=== PATIENT | female | born 1980 | race Caucasian/White ===

== ENCOUNTER 2024-03-16 11:50 | Emergency (ER) | payer OTHER, SELFPAY ==
[2024-03-16 12:02] VITALS: BP 146/98
--- NOTE | 2024-03-16 12:08 | ED.GENMED ---
ED Provider Triage
<Laura Hoang PA-C - Last Filed: 03/16/24 12:14>
-
Patient seen by provider in Triage?: Seen in Triage
Attestation: A medical screening examination has been initiated by a qualified medical provider. Based on the assessment performed at this time, it has been determined that an emergent medical condition may exist and the patient has been informed
that further medical evaluation and possible additional diagnostic testing may be needed.
HPI: 44yoF here with n/v since Friday. Also having lower abd pain but main symptom is vomiting. Wegovy dose recently increased.
GENERAL: Alert , in no apparent distress
EYE: No visual abnormalities.
NECK: Trachea midline
ENT: No visible abnormalities.
LUNGS: No acute respiratory distress
NEUROLOGICAL: Alert and oriented
SKIN: Skin intact. No visible changes.
MUSCULOSKELETAL: Moving extremities normally
PSYCH: Normal and appropriate interaction.
This is a medical evaluation conducted in person to initiate diagnostic evaluation and provide initial therapeutics. Please see further documentation by the treating clinician.
Abdominal labs and HCG ordered. PO Zofran dose ordered for nausea.
History of Present Illness
<Laura Hoang PA-C - Last Filed: 03/16/24 12:14>
General
Chief Complaint: Abdominal Symptoms
Time Seen by Provider: 03/16/24 14:53
<Shaka Gracia Jr., PA-C - Last Filed: 03/16/24 18:53>
General
Source: patient
Exam Limitations: none
Nursing documentation reviewed up to this point in time: agreed with
History of Present Illness
History of Present Illness:
44-year-old female past with history of hypothyroidism and depression presenting to the emergency department today with concerns of nausea and vomiting over the past 4 days denies any diarrhea no fevers no abdominal pain did start Wegovy 6 weeks ago
last dose was last Friday takes this once weekly.
Past History
<Laura Hoang PA-C - Last Filed: 03/16/24 12:14>
Past History
ED Past Medical History: Hypothyroidism
ED Past Surgical History: None
Social History
Tobacco: Non-smoker
Alcohol: None
Personal:
Living: with family
Family History
Family History: Negative Diabetes
Review of Systems
<Shaka Gracia Jr., PA-C - Last Filed: 03/16/24 18:53>
Review of Systems
Allergies reviewed?: Yes
All Other Systems: ROS reviewed and negative except as documented in HPI and ROS
Phy Exam
<Shaka Gracia Jr., PA-C - Last Filed: 03/16/24 18:53>
Physical Exam
Physical Exam:
GENERAL: Alert , in no apparent distress
EYE: pupils equal and reactive
NECK: Supple, no significant adenopathy.
ENT: o/p clr, mmm.
CARDIAC: Regular rate and rhythm .
LUNGS: Clear breath sounds bilaterally, no acute respiratory distress, no wheezes/rales/rhonchi
ABDOMEN: Soft, without focal tenderness, no r/g, no cvat
NEUROLOGICAL: Alert and oriented, no focal neuro deficits
SKIN: Warm and dry, skin intact.
MUSCULOSKELETAL: No edema, well perfused.
PSYCH: Normal and appropriate interaction.
Course
<Laura Hoang PA-C - Last Filed: 03/16/24 12:14>
Orders/Labs/Results
Orders:
Orders
03/16/24 12:07
Test Result ONCE
03/16/24 12:11
Ondansetron Orally Disint [Zofran Odt (Orally Disintegrating)] 4 mg PO NOW STA
03/16/24 12:12
Ondansetron HCl [Zofran] 4 mg PO NOW STA
03/16/24 12:16
Complete Blood Count/With Diff Urgent
Comprehensive Metabolic Panel Urgent
HCG, Serum Qualitative Screen Urgent
Lipase Urgent
03/16/24 15:32
0.9% Sodium Chloride 1000 ml [Nss] 1,000 ml IV BOLUS
Famotidine [Pepcid] 20 mg IV NOW STA
Ondansetron Injectable [Zofran] 4 mg IV NOW STA
03/16/24 15:33
US Abdomen Complete/Upper Urgent
Comment:
Reason For Exam: transaminitis vomiting vague abd pain
03/16/24 17:11
Urinalysis Reflex To Culture Urgent
Date Specimen was Collected: 03/16/24
Time Specimen was Collected: 12:07
Abnormal Lab Results
03/16/24
12:16
MPV 11.3 H fL
(7.4-10.4)
Absolute Monos (auto) 0.7 H 10^3/uL
(0.1-0.6)
Monocytes % 12.0 H %
(1.7-9.3)
Carbon Dioxide 20 L mmol/L
(22-30)
AST 143 H U/L
(14-36)
ALT 191 H U/L
(0-35)
Albumin 5.1 H g/dl
(3.5-5.0)
03/16/24 12:16
03/16/24 12:16
Vital Signs
Initial and Last Documented VS:
Initial Vital Signs
Temp Pulse Resp BP Pulse Ox
97.8 F 110 16 146/98 98
03/16/24 12:02 03/16/24 12:02 03/16/24 12:02 03/16/24 12:02 03/16/24 12:02
Last Documented Vital Signs
Temp Pulse Resp BP Pulse Ox
97.8 F 97 16 130/85 100
03/16/24 12:02 03/16/24 15:53 03/16/24 16:00 03/16/24 15:53 03/16/24 15:53
<Shaka Gracia Jr., HEATH-Rob - Last Filed: 03/16/24 18:53>
Orders/Labs/Results
Orders:
Orders
03/16/24 12:07
Test Result ONCE
03/16/24 12:11
Ondansetron Orally Disint [Zofran Odt (Orally Disintegrating)] 4 mg PO NOW STA
03/16/24 12:12
Ondansetron HCl [Zofran] 4 mg PO NOW STA
03/16/24 12:16
Complete Blood Count/With Diff Urgent
Comprehensive Metabolic Panel Urgent
HCG, Serum Qualitative Screen Urgent
Lipase Urgent
03/16/24 15:32
0.9% Sodium Chloride 1000 ml [Nss] 1,000 ml IV BOLUS
Famotidine [Pepcid] 20 mg IV NOW STA
Ondansetron Injectable [Zofran] 4 mg IV NOW STA
03/16/24 15:33
US Abdomen Complete/Upper Urgent
Comment:
Reason For Exam: transaminitis vomiting vague abd pain
03/16/24 17:11
Urinalysis Reflex To Culture Urgent
Date Specimen was Collected: 03/16/24
Time Specimen was Collected: 12:07
Abnormal Lab Results
03/16/24
12:16
MPV 11.3 H fL
(7.4-10.4)
Absolute Monos (auto) 0.7 H 10^3/uL
(0.1-0.6)
Monocytes % 12.0 H %
(1.7-9.3)
Carbon Dioxide 20 L mmol/L
(22-30)
AST 143 H U/L
(14-36)
ALT 191 H U/L
(0-35)
Albumin 5.1 H g/dl
(3.5-5.0)
03/16/24 12:16
03/16/24 12:16
Vital Signs
Initial and Last Documented VS:
Initial Vital Signs
Temp Pulse Resp BP Pulse Ox
97.8 F 110 16 146/98 98
03/16/24 12:02 03/16/24 12:02 03/16/24 12:02 03/16/24 12:02 03/16/24 12:02
Last Documented Vital Signs
Temp Pulse Resp BP Pulse Ox
97.8 F 97 16 130/85 100
03/16/24 12:02 03/16/24 15:53 03/16/24 16:00 03/16/24 15:53 03/16/24 15:53
<Shaka Gracia Jr., PA-C - Last Filed: 03/16/24 18:53>
MDM/Problems Addressed
MDM/Problems Addressed:
40-year-old female presenting to the emergency department with concerns of nausea and vomiting decreased oral intake over the past 4 days has been taking Wegovy over the past 6 weeks. On arrival slightly tachycardic but otherwise vital signs are
normal. Labs without a white count, slight transaminitis. Concerning this right upper quadrant ultrasound was performed. No evidence of emergent pathology some sludge in the gallbladder but no inflammation. No right upper quadrant tenderness
when reassessed. Fatty liver seen on ultrasound which was dropped with the patient. Otherwise at this point patient without any vomiting in the ER able to tolerate small amount by mouth stable for outpatient management return precautions given.
<Shaka Gracia Jr., PA-C - Last Filed: 03/16/24 18:53>
*Critical Care Note
Total Time (30-74mins, 75-104mins- exclusive of procedures): Not Applicable
ED Attending Note
<Laura Hoang PA-C - Last Filed: 03/16/24 12:14>
-
Portions of this chart may have been created with voice recognition software.� Occasional wrong word or��sound alike� substitutions may have occurred due to the inherent limitations of voice recognition software.
Discharge Plan
Departure
Patient Disposition: Home (Routine Discharge)
Date of Disposition: 03/16/24
Time of Disposition: 18:42
Patient with high blood pressure during this ER visit?: No
Condition: Good
Covid-19: Not Applicable
Discharge Problem:
Vomiting
Instructions: Nausea and Vomiting, Adult (DC)
Prescriptions:
New
ondansetron 4 mg tablet,disintegrating
4 mg PO Q6H PRN (Reason: nausea and vomiting) Qty: 7 0RF
No Action
levothyroxine [Synthroid] 75 MCG tablet
75 mcg PO DAILY
Control Pill
1 tab PO DAILY
ondansetron 4 MG tablet,disintegrating
4 - 8 mg PO TIDPRN PRN (Reason: NAUSEA) Qty: 20 0RF
ondansetron 4 MG tablet,disintegrating
4 mg PO TIDPRN PRN (Reason: nausea/vomiting) 3 Days Qty: 6 0RF
dicyclomine 20 MG tablet
20 mg PO QIDPRN PRN (Reason: abdominal pain) 4 Days Qty: 20 0RF
Referrals:
Elisa Flores MD [Family Provider] -
Activity Restrictions/Additional Instructions:
You came to the emergency department today with concerns of nausea vomiting. Here you had a reassuring assessment. You did have elevated liver function test please follow closely as an outpatient for reassessment of this. Return to the emergency
department for any worsening, new or concerning symptoms.
Interventions
Interventions:
*Risk Screen - Suicide Last Done: 03/16/24 12:02
*General Assessment Last Done: 03/16/24 15:04
*Neglect/Abuse Screening Last Done: 03/16/24 12:02
*ED COVID-19 Vaccine History Last Done: 03/16/24 15:04
EB-[id number] Assessment Last Done: 03/16/24 15:05
Discharge Date and Time
Print Language: CYPRIOT
[2024-03-16] MEDS: ZOFRAN 4 MG PO (12:17)
[2024-03-16 12:24] LABS: % Basophils 0.4 % (0-2); % Eosinophils 0.4 % (0-6); % Immature Granulocytes 0.2 % (0-0.5); % Lymphocytes 24.4 % (20.5-51.1); % Neutrophils 62.6 % (42.2-75.2); Absolute Lymphocytes 1.3 10^3/uL (1.2-3.4); Absolute Monocytes 0.7 10^3/uL (0.1-0.6); Absolute Neutrophils 3.5 10^3/uL (1.4-6.5); Hematocrit 39.1 % (37.0-47.0); Hemoglobin 13.6 g/dL (12.0-16.0); Mean Corp Hgb Conc. 34.8 g/dL (33.0-37.0); Mean Corpuscular Hgb 29.3 pg (27.0-31.0); Mean Corpuscular Volume 84.3 fL (81.0-99.0); Mean Platelet Volume 11.3 fL (7.4-10.4); Nucleated Red Blood Cells % 0 %; Platelet Count 283 10^3/uL (130-400); Red Blood Cell Count 4.64 10^6/uL (4.20-5.40); White Blood Cell Count 5.5 10^3/uL (4.8-10.8)
[2024-03-16 12:39] LABS: HCG, Serum Qualitative Screen Negative
[2024-03-16 12:40] LABS: ALT (SGPT) 191 U/L (0-35); AST (SGOT) 143 U/L (14-36); Albumin 5.1 g/dl (3.5-5.0); Alkaline Phosphatase 68 U/L (38-126); Blood Urea Nitrogen 9 mg/dl (7-17); Calcium 10.2 mg/dl (8.4-10.2); Carbon Dioxide 20 mmol/L (22-30); Chloride 101 mmol/L (98-107); Glucose 92 mg/dl (70-99); Potassium 4.4 mmol/L (3.5-5.1); Sodium 140 mmol/L (135-145); Total Bilirubin 1.1 mg/dl (0.2-1.3); Total Protein 8.1 g/dl (6.3-8.2); eGFR > 60.00
[2024-03-16 13:07] LABS: Lipase 112 U/L (23-300)
[2024-03-16] MEDS: NSS 1000 IV (15:40)
[2024-03-16] MEDS: PEPCID 20 MG IV (15:40)
[2024-03-16 15:53] VITALS: BP 130/85
[2024-03-16 18:56] VITALS: BP 130/80
== END 2024-03-16 18:59 | disposition home or self-care (01) ==
LOC: EMR 11:50
PROVIDERS: Emergency Medicine; EMERGENCY PHYSICIAN Emergency Medicine; FAMILY PHYSICIAN Internal Medicine
DX: R11.2 Nausea with vomiting, unspecified (principal); R10.30 Lower abdominal pain, unspecified; E03.9 Hypothyroidism, unspecified
CPT/HCPCS: 96374; 96361; 99284; 76700; 80053; 83690; 84703; 85025